=== PATIENT | female | born 1990 | race Caucasian/White ===

== ENCOUNTER 2017-11-08 20:50 | Observation (INO) | payer MEDICAID, OTHER ==
[~2017-11-08] VITALS: Ht 154.9 cm; Wt 99.8 kg
[~2017-11-08 20:50] MED LIST: FERR325E14 PO; IBUP-974 PO; PREN-385 PO
[2017-11-08] MEDS ORDERED: ACETAMINOPHEN 650 MG/20.3 ML UDC PO PRN (21:45)
[2017-11-08] MEDS ORDERED: ACETAMINOPHEN 325 MG TAB ONE (21:57)
[2017-11-09] MEDS ORDERED: ACETAMINOPHEN 325 MG TAB PO PRN (07:20)
== END 2017-11-08 22:35 | disposition home or self-care (01) ==
LOC: MLD 20:50
PROVIDERS: ADMIT Obstetrics & Gynecology; ATTEND Obstetrics & Gynecology
DX: O99.89 Other specified diseases and conditions complicating pregnancy, childbirth and the puerperium (principal); M54.5 Low back pain; Z3A.37 37 weeks gestation of pregnancy
CPT/HCPCS: 81000; G0378

== ENCOUNTER 2018-06-01 23:18 | Emergency (ER) | payer OTHER ==
[~2018-06-01] VITALS: Ht 154.9 cm; Wt 99.8 kg
[~2018-06-01 23:18] MED LIST changes: -IBUP-974 PO
[2018-06-01 23:33] VITALS: BP 139/92
--- NOTE | 2018-06-02 00:56 | NUR ---
Pt presents to ED with soar throat and non-productive cough x4 days. taking OTC home meds without relief. A&Ox4. VSS. Sitting at bedside with family. ER Md aware. Continue to monitor.
--- NOTE | 2018-06-02 00:56 | NUR ---
pt ambulated to bed 3
[2018-06-02 01:45] VITALS: BP 139/92
--- NOTE | 2018-06-02 01:45 | NUR ---
Patient discharged with v/s stable. Written and verbal after care instructions given and explained. Patient alert, oriented and verbalized understanding of instructions. Ambulatory with steady gait. All questions addressed prior to discharge. ID band removed. Patient advised to follow up with PMD. Rx of Azithromycin given. Patient educated on indication of medication including possible reaction and side effects. Opportunity to ask questions provided and answered.
== END 2018-06-02 01:45 | disposition home or self-care (01) ==
LOC: MED 23:18
DX: J02.8 Acute pharyngitis due to other specified organisms (principal); B97.89 Other viral agents as the cause of diseases classified elsewhere; J40 Bronchitis, not specified as acute or chronic; Z79.899 Other long term (current) drug therapy
CPT/HCPCS: 99283